=== PATIENT | male | born 1965 | race Caucasian/White ===

== ENCOUNTER 2024-06-16 11:09 | Emergency (ER) | payer OTHER, SELFPAY ==
[2024-06-16] VITALS (12 sets, daily range): BP systolic 155–195; BP diastolic 90–132; BMI 37.7
[2024-06-16 12:19] LABS: % Eosinophils 6.5 % (0-6); % Immature Granulocytes 0.4 % (0-0.5); % Lymphocytes 32.1 % (20.5-51.1); % Monocytes 10.5 % (1.7-9.3); % Neutrophils 49.5 % (42.2-75.2); Absolute Basophils 0.1 10^3/uL (0-0.2); Absolute Eosinophils 0.4 10^3/uL (0-0.7); Absolute Lymphocytes 2.2 10^3/uL (1.2-3.4); Absolute Monocytes 0.7 10^3/uL (0.1-0.6); Absolute Neutrophils 3.3 10^3/uL (1.4-6.5); Hematocrit 45.4 % (39.0-52.0); Hemoglobin 15.7 g/dL (13.0-18.0); Mean Corp Hgb Conc. 34.6 g/dL (33.0-37.0); Mean Corpuscular Hgb 29.8 pg (27.0-31.0); Mean Corpuscular Volume 86.1 fL (80.0-94.0); Mean Platelet Volume 9.3 fL (7.4-10.4); Nucleated Red Blood Cells % 0 % (-); Platelet Count 241 10^3/uL (130-400); Red Blood Cell Count 5.27 10^6/uL (4.70-6.10); Red Cell Dist. Width 12.3 % (11.5-14.5); White Blood Cell Count 6.7 10^3/uL (4.8-10.8)
[2024-06-16 12:33] LABS: ALT (SGPT) 42 U/L (0-50); AST (SGOT) 36 U/L (17-59); Albumin 4.6 g/dl (3.5-5.0); Alkaline Phosphatase 47 U/L (38-126); Blood Urea Nitrogen 22 mg/dl (9-20); Calcium 9.2 mg/dl (8.4-10.2); Carbon Dioxide 30 mmol/L (22-30); Chloride 102 mmol/L (98-107); Estimated Creatinine Clearance 87 ml/min; Glucose 116 mg/dl (70-99); Potassium 4.3 mmol/L (3.5-5.1); Sodium 142 mmol/L (135-145); Total Bilirubin 0.6 mg/dl (0.2-1.3); Total Protein 7.3 g/dl (6.3-8.2); eGFR > 60.00
--- NOTE | 2024-06-16 12:41 | ED.CVA ---
History of Present Illness
General
Chief Complaint: CVA/TIA Symptoms
Time Seen by Provider: 06/16/24 12:07
Onset of Stroke Symptoms
Onset of symptoms known: Yes
Date of onset of symptoms: 06/16/24
Time of onset of symptoms: 10:00
History of Present Illness
History of Present Illness:
59-year-old male without significant past medical history presenting to the emergency department for numbness to his lip and tongue. Patient reports symptoms started around 10 AM. Denies ever having similar symptoms in the past. Reports the
numbness is concentrated to the left tongue and left lip. Upon arrival to the hospital, numbness to the tongue is improving, however notes that it is still slightly residual to the left lower lip. Denies any history of stroke. Denies focal
weakness or numbness to his extremities. Denies chest pain, difficulty breathing, abdominal pain. Denies visual symptoms. Denies additional medical complaints
Past History
Past History
ED Past Medical History: GERD and Other (Back pain, migraines)
ED Past Surgical History: Orthopedic
Social History
Tobacco: Former smoker
Employment: Employed
Family History
Family History: CAD
Phy Exam
Physical Exam
Physical Exam:
General: Well-appearing, no clinical signs of dehydration, nontoxic and in no acute distress
HEENT: protecting airway
Neck: appears supple
CV: Normal heart rate, regular rhythm
Resp: No accessory muscle use, no increased work of breathing, lungs clear to auscultation bilaterally
Abd: Soft and non-distended, no tenderness to palpation
Extremities: No deformities, no swelling, no erythema
Neuro: alert, no focal neurologic deficit
: deferred
Rectal: deferred
Psych: Normal affect
Skin: Intact
Scores
NIH Stroke Score
Level of Consciousness: 0 - Alert
LOC Questions: 0-Answers both correctly
LOC Commands: 0-Performs both correctly
Best Horizontal Gaze: 0-Normal
Visual [place]: 0=Normal, no visual loss
Facial Palsy: 0=Normal, symmetrical
Motor - Right Arm: 0=No drift 10 seconds
Motor - Left Arm: 0=No drift 10 seconds
Motor - Right Le-No drift 5 seconds
Motor - Left Le-No drift 5 seconds
Limb Ataxia: 0-Absent
Sensation: 0-Normal
Best Language: 0-No aphasia
Dysarthria: 0-Normal
Extinction and Inattention: 0-No abnormality
Total Score:: 0
Course
Orders/Labs/Results
Orders:
Orders
06/16/24 11:[address] [CT Head W/o Iv Contrast] Urgent
Comment:
Reason For Exam: lip and tongue numbness
06/16/24 12:03
CMP [Comprehensive Metabolic Panel] Urgent
Complete Blood Count/With Diff Urgent
Vitamin D, 25-Oh Urgent
06/16/24 12:39
Add On- LAB Urgent
Tests Added?: vitamin d level
06/16/24 12:40
CT Head & Neck Angio W/wo IV Urgent
Comment:
Reason For Exam: perioral numbnesss
Abnormal Lab Results
06/16/24
12:03
Absolute Monos (auto) 0.7 H 10^3/uL
(0.1-0.6)
Monocytes % 10.5 H %
(1.7-9.3)
Eosinophils % 6.5 H %
(0-6)
BUN 22 H mg/dl
(9-20)
Glucose 116 H mg/dl
(70-99)
06/16/24 12:03
06/16/24 12:03
Vital Signs
Initial and Last Documented VS:
Initial Vital Signs
Temp Pulse Resp BP Pulse Ox
97.9 F 62 16 195/94 99
12/01/24 11:19 06/16/24 11:19 06/16/24 11:19 06/16/24 11:19 06/16/24 11:19
Last Documented Vital Signs
Temp Pulse Resp BP Pulse Ox
98.4 F 61 14 162/114 95
06/16/24 14:00 06/16/24 16:00 06/16/24 16:00 06/16/24 16:00 06/16/24 16:00
MDM/Problems Addressed
MDM/Problems Addressed:
59-year-old male without significant past medical history presenting for perioral numbness. Vital signs are significant for high blood pressure, however improving without intervention.
On exam, patient is well-appearing, no acute distress or discomfort. Patient sent to CT imaging prior to my assessment, given strokelike symptoms, possible TIA symptoms. CT without acute intracranial abnormality. On my assessment, no focal
neurologic deficits, notes that the numbness is gone from the tongue, however still residual to the lip. Overall low suspicion for acute CVA, however will discuss with neurology. NIH at this time is 0. No indication for tPA. Plan for laboratory
analysis.
12:40 - In discussion with neurology, recommending CTA to rule out any critical arterial occlusion, as well as a vitamin D level in the setting of MS.
16:40 - Labs are unremarkable and CTA is without acute intracranial abnormality. At this time patient remains to be dynamically stable, feel stable for discharge. Per neuro, reasonable for outpatient MRI. Strict return precautions communicated
and patient verbalized understanding
*Critical Care Note
Total Time (30-74mins, 75-104mins- exclusive of procedures): Not Applicable
ED Attending Note
-
Portions of this chart may have been created with voice recognition software.� Occasional wrong word or��sound alike� substitutions may have occurred due to the inherent limitations of voice recognition software.
Discharge Plan
Departure
Prescriptions:
No Action
prednisone 50 MG tablet
50 mg PO DAILY Qty: 4 0RF
hydrocodone-acetaminophen 1 TABLET tablet
1 tab PO Q4HPRN PRN (Reason: Pain) Qty: 12 0RF
Referrals:
Aissatou Parra, DO [Family Provider] -
Interventions
Interventions:
*Risk Screen - Suicide Last Done: 06/16/24 12:13
*General Assessment Last Done: 06/16/24 12:13
*Neglect/Abuse Screening Last Done: 06/16/24 12:13
ED- Fall Risk Assessment Last Done: 06/16/24 12:13
ED- Cardiac Assessment Last Done: 06/16/24 12:13
ED- Neurological Assessment Last Done: 06/16/24 12:13
ED- Pulmonary Assessment Last Done: 06/16/24 12:13
ED Swallowing Screen Last Done: 06/16/24 12:13
Discharge Date and Time
Print Language: SYRIAC
[2024-06-17 09:48] LABS: Vitamin D, 25-OH*** 46.9 ng/mL (30-80)
== END 2024-06-16 16:57 | disposition home or self-care (01) ==
LOC: EMR 11:09
PROVIDERS: Emergency Medicine; EMERGENCY PHYSICIAN Student in an Organized Health Care Education/Training Program; FAMILY PHYSICIAN Family Medicine
DX: R20.0 Anesthesia of skin (principal); K21.9 Gastro-esophageal reflux disease without esophagitis; Z82.49 Family history of ischemic heart disease and other diseases of the circulatory system; Z87.891 Personal history of nicotine dependence
CPT/HCPCS: 99284; 70450; 70496; 70498; 80053; 82306; 85025; Q9967

== ENCOUNTER → 2024-06-26 18:21 | Outpatient (REF) | payer OTHER, SELFPAY | LOC: MRI 3T 18:21 | PROVIDERS: ATTENDING PHYSICIAN Family Medicine | DX: R20.0 Anesthesia of skin (principal); R93.0 Abnormal findings on diagnostic imaging of skull and head, not elsewhere classified | CPT/HCPCS: 70553; A9575 ==